=== PATIENT | female | born 1940 | race Caucasian/White ===

== ENCOUNTER 2018-02-24 10:45 | Day surgery (SDC) | payer MEDICARE, BC ==
[~2018-02-24] VITALS: Ht 167.6 cm; Wt 85.0 kg
[2018-02-24] VITALS (9 sets, daily range): BP systolic 133–156; BP diastolic 53–72
[2018-02-24] MEDS ORDERED: PANT40TA4 PO (11:54)
[2018-02-24] MEDS ORDERED: ADV50250 IH (11:54)
[2018-02-24] MEDS ORDERED: [UNRECOGNIZED DRUG - CODE] PO (11:54)
[2018-02-24] MEDS ORDERED: ATOR40TA PO (11:54)
[2018-02-24] MEDS ORDERED: MELA3TAB PO (11:54)
[2018-02-24] MEDS ORDERED: CALC-336 PO (11:54)
[2018-02-24] MEDS ORDERED: MULT-38 PO (11:54)
[2018-02-24] MEDS ORDERED: ACET325C5 PO (11:54)
[2018-02-24] MEDS ORDERED: ASPI-1265 PO (11:54)
[2018-02-24] MEDS ORDERED: LORazepam 0.5 MG tablet PO PRN (12:45)
[2018-02-24] MEDS ORDERED: diphenhydrAMINE 25mg capsule PO PRN (12:45)
[2018-02-24] MEDS ORDERED: LIDOcaine/PRILOcaine 5gm cream TP ONE (12:45)
[2018-02-24] MEDS ORDERED: normal saline 1000ml 1,000 ML IV SCH (12:45)
[2018-02-24] MEDS ORDERED: midazolam 2 mg/2 ml injection ONE (13:14)
[2018-02-24] MEDS ORDERED: iohexol 350MG/ML 100ml bottle IV ONE (13:14)
[2018-02-24] MEDS ORDERED: verapamil 2.5 mg/ml inj IV ONE (13:14)
[2018-02-24] MEDS ORDERED: fentaNYL/PF 50MCG/1 ML 2ML syringe ONE (13:14)
[2018-02-24] MEDS ORDERED: nitroGLYCERIN-Tridil 50MG/D5W 250 ML IV ONE (13:14)
[2018-02-24] MEDS ORDERED: heparin 1,000unit/ml 10ml vial 10 ML ONE (13:14)
[2018-02-24] MEDS ORDERED: ondansetron/PF 4mg/2ml inj IV PRN (15:05)
[2018-02-24] MEDS ORDERED: nitroGLYCERIN 0.4mg SUBLingual tab SL PRN (15:05)
[2018-02-24] MEDS ORDERED: HYDROcodone/acetaminophen 10/325mg tab PO PRN (15:05)
[2018-02-24] MEDS ORDERED: HYDROcodone/acetaminophen 5mg/325mg tablet PO PRN (15:05)
[2018-02-24] MEDS ORDERED: OXAZEpam 15mg capsule PO PRN (15:05)
[2018-02-24] MEDS ORDERED: proCHLORperazine 10 MG/2 ml inj IV PRN (15:05)
== END 2018-02-24 18:00 | disposition home or self-care (01) ==
LOC: SSTAY O 10:45
PROVIDERS: ATTEND Internal Medicine Interventional Cardiology
DX: I25.118 Atherosclerotic heart disease of native coronary artery with other forms of angina pectoris (principal); E78.5 Hyperlipidemia, unspecified; K21.9 Gastro-esophageal reflux disease without esophagitis; Z90.49 Acquired absence of other specified parts of digestive tract; Z87.891 Personal history of nicotine dependence; Z79.82 Long term (current) use of aspirin; Z88.5 Allergy status to narcotic agent; Z88.1 Allergy status to other antibiotic agents; Z88.6 Allergy status to analgesic agent; Z98.890 Other specified postprocedural states; Z79.899 Other long term (current) drug therapy
CPT/HCPCS: 93005; 93458; 99152; A6257; A6258; A6402; C1769; J1644; J2250; J3010; J3490; J7030; Q0163; Q9967; A4620

== ENCOUNTER 2019-07-29 07:00 | Observation (INO) | payer MEDICARE, BC ==
[2019-07-21 16:21] LABS: PRE OP PROTIME 10.1 SECONDS (9.0-12.0)
[2019-07-21 16:22] LABS: BASOPHILS % (AUTO) 0.5 % (0-1); EOSINOPHILS # (AUTO) 0.2 X10'3 (0-0.9); EOSINOPHILS % (AUTO) 2.5 % (0-6); LYMPHOCYTES # (AUTO) 2.3 X10'3 (1.1-4.8); LYMPHOCYTES % (AUTO) 31.1 % (21-51); MEAN CORPUSCULAR HEMOGLOBIN 30.9 PG (27.0-31.0); MEAN CORPUSCULAR HGB CONC 33.8 g/dL (33.0-36.5); MEAN CORPUSCULAR VOLUME 91.5 FL (78-98); MEAN PLATELET VOLUME 9.7 FL (7.4-10.4); MONOCYTES # (AUTO) 0.7 X10'3 (0-0.9); MONOCYTES % (AUTO) 10.2 % (2-12); NEUTROPHILS # (AUTO) 4.1 X10'3 (1.8-7.7); NEUTROPHILS % (AUTO) 55.7 % (42-75); PRE OP HEMATOCRIT 41.5 % (35.0-45.0); PRE OP PLATELET COUNT 176 X10'3 (140-440); RED BLOOD COUNT 4.54 X10'6 (4.20-5.60); RED CELL DISTRIBUTION WIDTH 13.8 % (11.5-14.5)
[2019-07-21 16:25] LABS: ALBUMIN 3.9 G/DL (3.4-5.0); ALBUMIN/GLOBULIN RATIO 1.1 (1.1-1.5); ALKALINE PHOSPHATASE 57 IU/L (46-116); BLOOD UREA NITROGEN 14 MG/DL (7-18); BUN/CREATININE RATIO 16.3 (6.6-38.0); CALCIUM 9.5 MG/DL (8.5-10.1); CHLORIDE 104 MMOL/L (99-107); CREATININE 0.86 MG/DL (0.40-0.90); PRE OP ALT 25 U/L (30-65); PRE OP ANION GAP 6 (8-16); PRE OP AST 16 U/L (10-37); PRE OP BILIRUB, TOTAL 0.3 MG/DL (0.0-1.0); PRE OP GLUCOSE 105 MG/DL (70-104); PRE OP POTASSIUM 3.9 MMOL/L (3.4-5.1); PRE OP SODIUM 140 MMOL/L (135-145); TOTAL CARBON DIOXIDE 29.9 MMOL/L (24-32); TOTAL PROTEIN 7.4 G/DL (6.4-8.2); eGFR 64 ML/MIN
[~2019-07-29] VITALS: Ht 167.6 cm; Wt 85.0 kg
[2019-07-29] VITALS (22 sets, daily range): BP systolic 134–190; BP diastolic 55–116
[~2019-07-29 07:00] MED LIST: ACET325C6 PO; ADV50250 IH; CALC-336 PO; MULT-38 PO; PANT40TA4 PO; ZOLP5TAB8 PO; cefazolin/dext.iso 2gm/50ml 50 ML IV ONE; famotidine 20mg tablet PO ONE; ringers solution, lacted 1,000 ML IV SCH; vancomycin inj 1,500 MG in normal saline 300ml IV soln IV ONE
[2019-07-29] MEDS ORDERED: FLUT16SP2 BOTHNARES (08:12)
[2019-07-29] MEDS ORDERED: BUPIVAcaine/PF 2.5 mg/ml (0.25%) 30ml vial ONE (08:49)
[2019-07-29] MEDS ORDERED: sevoflurane 250ml liquid IH ONE (09:09)
[2019-07-29] MEDS ORDERED: ePHEDrine 50MG/ML INJ. ONE (09:09)
[2019-07-29] MEDS ORDERED: fentaNYL /PF 50mcg/ml 5ml ampule ONE (09:14)
[2019-07-29] MEDS ORDERED: ringers solution, lacted 1,000 ML IV SCH (10:14)
[2019-07-29] MEDS ORDERED: HYDROmorphone inj. 0.5 MG/0.5 ML DISP.SYRIN IV PRN (10:15)
[2019-07-29] MEDS ORDERED: ondansetron/PF 4mg/2ml inj IV PRN ×2 (10:15→11:30)
[2019-07-29] MEDS ORDERED: ondansetron/PF 4mg/2ml inj ONE (10:21)
[2019-07-29] MEDS ORDERED: dexamethasone sod phosphate 4mg/ml inj. ONE (10:21)
[2019-07-29] MEDS ORDERED: neostigmine methylsulfate 1 MG/ML 10ml vial ONE (10:21)
[2019-07-29] MEDS ORDERED: rocuronium 10mg/ml inj IV ONE (10:21)
[2019-07-29] MEDS ORDERED: LIDOcaine 2% (20mg/ml) 5ml vial ONE (10:21)
[2019-07-29] MEDS ORDERED: propofol inj 20 ML IV ONE (10:21)
[2019-07-29] MEDS ORDERED: glycopyrrolate 0.2mg/ml inj ONE (10:21)
--- NOTE | 2019-07-29 11:25 | NUR ---
Received from OR via BED, accompanied by Anesthesiologist DR GELLER and report given by Anesthesiologist. PT WRITHING IN PAIN, AGITATED, PAIN MEDICATION AND VERSED GIVEN PER MD ORDERS FOR PAIN CONTROL. RIGHT SHOULDER W/DRSG CDI, RIGHT ARM IN SLING, POWDER PACK APPLIED TO SHOULDER, FINGERS PWD, [employer] 1-2 SECONDS, RADIAL PULSES STRONG. Addendum: 07/29/19 at 1228 by Brooklyn Ng RN Amended: Links added.
[2019-07-29] MEDS: morphine 4 MG/ML inj SYRINge IV PRN ×3 (11:26→12:54)
[2019-07-29] MEDS ORDERED: magnesium hydroxide 30ml (MOM) UD suspension PO PRN (11:30)
[2019-07-29] MEDS ORDERED: acetaminophen 325mg tablet PO PRN (11:30)
[2019-07-29] MEDS ORDERED: bisacodyl 10mg suppository rectal RC PRN (11:30)
[2019-07-29] MEDS ORDERED: diphenhydrAMINE 25mg capsule PO PRN ×2 (11:30)
[2019-07-29] MEDS: HYDROmorphone inj. 0.5 MG/0.5 ML DISP.SYRIN IV PRN ×5 (11:43→20:14)
[2019-07-29] MEDS ORDERED: acetaminophen 1,000mg/100ml IV 100 ML IV ONE (11:45)
[2019-07-29] MEDS ORDERED: midazolam 2 mg/2 ml injection ONE (11:47)
[2019-07-29] MEDS: MIDAZolam 5mg/ml 2ml vial IV PRN ×3 (11:48→12:12)
[2019-07-29] MEDS ORDERED: labetalol 20mg/4ml (5mg/ml) syringe IV ONE (11:58)
[2019-07-29] MEDS ORDERED: naloxone 0.4 mg/ml inj ONE (11:58)
--- NOTE | 2019-07-29 13:15 | NUR ---
Report called to receiving nurse. Transferred via BED, 1 BAG OF PERSONAL Belongings SENT W/PT TO ROOM 4010A, RN AT BEDSIDE TO RECEIVE PT, BLL CALL, LIGHT GIVEN, SIDE RAILS UP X 2. Special Issues communicated to receiving nurse. YES. Addendum: 07/29/19 at 1331 by Brooklyn Ng RN Amended: Links added.
--- NOTE | 2019-07-29 13:30 | NUR ---
on the floor
[2019-07-29] MEDS: HYDROcodone/acetaminophen 10/325mg tab PO PRN ×3 (14:07→22:43)
--- NOTE | 2019-07-29 14:40 | NUR ---
Patient in room ORTHO 4010. I have received report from Brooklyn CAMARILLO and had the opportunity to ask questions and assume patient care. Addendum: 07/29/19 at 1442 by Matt Liu RN received report at 1300 from Brooklyn CAMARILLO
[2019-07-29] MEDS: ceFAZolin 1GM/D5W- ADD-VANTAGE 50 ML IV SCH (16:03)
[2019-07-29] MEDS: potassium Cl 20mEq in NS 1,000 ML IV SCH (16:03)
[2019-07-29] MEDS: ketorolac tromethamine 15mg/ml inj. IV PRN ×2 (16:40→22:43)
--- NOTE | 2019-07-29 18:22 | NUR ---
Problems reprioritized. Patient report given, questions answered & plan of care reviewed with Kaley CAMARILLO.
[2019-07-29] MEDS ORDERED: vancomycin/NS 1 GM ADD-VANTAGE 250 ML IV SCH (20:00)
[2019-07-29] MEDS: pantoprazole 40mg Tablet.DR PO SCH (20:05)
[2019-07-29] MEDS: zolpidem 5mg tablet PO SCH (20:13)
[2019-07-29] MEDS: sennosides 8.6mg tablet PO SCH (20:13)
[2019-07-30] MEDS: ceFAZolin 1GM/D5W- ADD-VANTAGE 50 ML IV SCH (00:09)
[2019-07-30] MEDS: potassium Cl 20mEq in NS 1,000 ML IV SCH ×3 (00:46→20:16)
[2019-07-30] MEDS ORDERED: HYDROmorphone 1 mg/ml syringe ONE (01:08)
[2019-07-30] MEDS: HYDROmorphone inj. 0.5 MG/0.5 ML DISP.SYRIN IV PRN ×2 (01:12→14:08)
[2019-07-30 02:00] VITALS: BP 138/65
[2019-07-30] MEDS: HYDROcodone/acetaminophen 10/325mg tab PO PRN ×4 (02:38→20:12)
[2019-07-30] MEDS: ketorolac tromethamine 15mg/ml inj. IV PRN ×3 (05:41→21:38)
[2019-07-30 06:00] VITALS: BP 140/67
--- NOTE | 2019-07-30 06:08 | NUR ---
Problems reprioritized. Patient report given, questions answered & plan of care reviewed with RABIA Gutierrez.
--- NOTE | 2019-07-30 06:27 | NUR ---
Patient in room ORTHO 4010. I have received report from Jose Carlos CAMARILLO and had the opportunity to ask questions and assume patient care. Addendum: 07/30/19 at 0628 by Matt Liu RN Patient in room ORTHO 4010. I have received report from Kaley CAMARILLO and had the opportunity to ask questions and assume patient care.
[2019-07-30] MEDS: pantoprazole 40mg Tablet.DR PO SCH ×2 (07:04→20:15)
--- NOTE | 2019-07-30 17:03 | NUR ---
Dr stone gave patient spouse a prescription for [place] for home pain control.
[2019-07-30 18:00] VITALS: BP 147/59
--- NOTE | 2019-07-30 18:13 | NUR ---
Problems reprioritized. Patient report given, questions answered & plan of care reviewed with Kaley CAMARILLO.
[2019-07-30] MEDS: sennosides 8.6mg tablet PO SCH (20:15)
[2019-07-30] MEDS: zolpidem 5mg tablet PO SCH (20:55)
[2019-07-30 22:00] VITALS: BP 178/78
--- NOTE | 2019-07-31 03:07 | NUR ---
Reviewed and agree with SRN assessment.
--- NOTE | 2019-07-31 06:29 | NUR ---
Problems reprioritized. Patient report given, questions answered & plan of care reviewed with Tricia.
[2019-07-31] MEDS: pantoprazole 40mg Tablet.DR PO SCH (08:00)
[2019-07-31] MEDS: ketorolac tromethamine 15mg/ml inj. IV PRN (08:02)
[2019-07-31] MEDS: HYDROcodone/acetaminophen 10/325mg tab PO PRN (09:39)
--- NOTE | 2019-07-31 10:04 | NUR ---
Patient discharged, IV taken out canula intact and tolerated well. Wheeled out to meet at car. will make F/U erick.
== END 2019-07-31 09:40 | disposition home or self-care (01) ==
LOC: PAS 07:00 → ORTHO 4S 07:01
PROVIDERS: ADMIT Orthopaedic Surgery; ATTEND Orthopaedic Surgery
DX: M75.121 Complete rotator cuff tear or rupture of right shoulder, not specified as traumatic (principal); M19.011 Primary osteoarthritis, right shoulder; Z87.891 Personal history of nicotine dependence; Z88.5 Allergy status to narcotic agent; Z88.1 Allergy status to other antibiotic agents; W19.XXXA Unspecified fall, initial encounter; Y93.89 Activity, other specified; Y92.89 Other specified places as the place of occurrence of the external cause
CPT/HCPCS: 23130; 23412; 36415; 80053; 82948; 85025; 85610; 85730; 93005; 96365; 96366; 96367; 96368; 96375; 96376; 97116; 97161; A6223; C1713; G0378; J0131; J0690; J1100; J1170; J1885; J2001; J2250; J2270; J2310; J2405; J2704; J2710; J3010; J3370; J3480; J3490; J7120; Q0163; A4215; A4565; A4618; A6253; A6449; A7000